=== PATIENT | female | born 1940 | race Caucasian/White ===

== ENCOUNTER → 2017-01-29 | Outpatient (CLI) | payer MEDICARE, OTHER | LOC: RAD 13:32 | DX: S09.93XA Unspecified injury of face, initial encounter (principal) | CPT/HCPCS: 70150; 70200 ==

== ENCOUNTER → 2017-01-30 | Outpatient (CLI) | payer MEDICARE, OTHER | LOC: KOH-I 12:58 | DX: S09.90XA Unspecified injury of head, initial encounter (principal); S09.93XA Unspecified injury of face, initial encounter; W19.XXXA Unspecified fall, initial encounter | CPT/HCPCS: 70450 ==

== ENCOUNTER → 2021-03-23 | Outpatient (CLI) | payer MEDICARE, OTHER ==
[~2021-03-23] MED LIST: AZELASTINE137 MCG/0.; CELEBREX 200MG200 MG PO; CELEBREX200 MG PO; CENTRUM SILVER1 EAC4 PO; CITRACAL + BON1 EACH PO; CRESTOR10 MG PO; DITROPAN 5 MG TA5 MG PO; ECOTRIN81 MG PO; ELAVIL 25 MG TA25 MG PO; FLEXERIL 10 MG10 MG PO; FLONASE 0.05% N16 GM; GABAPENTIN400 MG PO; KEFLEX500 MG PO; LEVAQUIN500 MG PO; LOPRESSOR50 MG PO; MIRALAX17 GM PO; NAPROSYN500 MG PO; NEURONTIN 400400 MG PO; NEURONTIN400 MG PO; NEXIUM20 MG PO; PREDNISONE10 M1 PO; PRESERVISION A1 EAC2 PO; PRINIVIL10 MG PO; PROBIOTIC1 EAC1 PO; SYNTHROID88 MCG PO; ULTRAM50 MG PO; XYZAL5 MG PO
== END ==
LOC: KOH-I 12:39
DX: Z01.811 Encounter for preprocedural respiratory examination (principal)
CPT/HCPCS: 71046

== ENCOUNTER → 2021-03-30 | Outpatient (CLI) | payer MEDICARE, OTHER | LOC: KOH-I 09:00 → EMI 09:00 | DX: M51.16 Intervertebral disc disorders with radiculopathy, lumbar region (principal); M41.9 Scoliosis, unspecified | CPT/HCPCS: 72148 ==

== ENCOUNTER → 2021-06-21 | Outpatient (CLI) | payer MEDICARE, OTHER | LOC: KOH-I 14:22 | DX: C73 Malignant neoplasm of thyroid gland (principal); E04.1 Nontoxic single thyroid nodule | CPT/HCPCS: 76536 ==

== ENCOUNTER → 2021-10-11 | Outpatient (CLI) | payer MEDICARE, OTHER | LOC: EXRD 09-29 09:00 | DX: R10.11 Right upper quadrant pain (principal) | CPT/HCPCS: 76705 ==